=== PATIENT | female | born 1940 | race Caucasian/White ===

== ENCOUNTER 2018-12-20 12:01 | Inpatient (IN) ==
[2018-12-20] MEDS ORDERED: ZOFRAN IV PRN (13:55)
[2018-12-20] MEDS ORDERED: TYLENOL PO PRN (13:55)
[2018-12-20] MEDS ORDERED: SALINE LOCK IV FLUID XX ONE (13:55)
--- NOTE | 2018-12-20 14:23 | Diag Imaging Result Doc PS360 ---
CHEST-2 VIEWS - 12/20/2018 INDICATION: ms change COMPARISON: 06/09/2018 FINDINGS: Stable mild cardiomegaly. Pulmonary vascularity is normal. No infiltrates or edema. No pneumothorax or pleural effusion. IMPRESSION: Cardiomegaly. Electronically signed by Edd Evans 12/20/2018 2:21 PM
[2018-12-20 14:54] LABS: BASO# 0.02 X1000 (0.0-0.2); BASO% 0.3 % (0.0-0.8); EOS# 0.12 X1000 (0.0-0.7); EOS% 1.9 % (0.0-10.0); HEMATOCRIT 39.4 % (37.0-47.0); HEMOGLOBIN 12.6 g/dL (12.0-16.0); IMM GRAN# 0.03 X1000 (0.0-0.04); IMM GRAN% 0.5 % (0.0-0.5); LYMPH# 1.19 X1000 (1.2-3.4); LYMPH% 18.9 % (20.5-51.1); MCH 29.3 PG (27-31); MCV 91.6 FL (81-99); MONO# 0.59 X1000 (0.11-0.59); MONO% 9.4 % (1.7-9.3); MPV 11.8 FL (7.4-10.4); NEUT# 4.33 X1000 (1.4-6.5); PLT 240 X1000 (130-400); RDW 13.8 % (11.5-14.5); WBC 6.28 X1000 (4.8-10.8)
[2018-12-20 15:18] LABS: ALB/GLOB RATIO 1.1; ALBUMIN 3.7 g/dL (3.5-5.0); CALCIUM 9.5 mg/dL (8.8-10.2); CREATININE 1.1 mg/dL (0.5-0.9); POTASSIUM 3.9 mmol/L (3.5-5.1); TOTAL BILIRUBIN 0.66 mg/dL (0.20-1.00); TOTAL PROTEIN 7.1 g/dL (6.3-8.3)
[2018-12-20 15:25] LABS: FREE T4 1.64 ng/dL (0.93-1.70)
[2018-12-20 15:49] LABS: TSH 14.18 uIUmL (0.27-4.20)
--- NOTE | 2018-12-20 15:55 | Diag Imaging Result Doc PS360 ---
EXAM: CT HEAD W/O CONTRAST 12/20/2018 HISTORY: ms change TECHNIQUE: This exam was performed using automated exposure control, adjustment of mA or kV according to patient size, and/or use of iterative reconstruction technique. COMMENT: There are patchy areas of lucency in the periventricular white matter bilaterally. There is no evidence of mass effect, bleed, or abnormal extra-axial fluid collection. There are no previous studies available for comparison. There is opacification of the left maxillary sinus and sclerosis of the surrounding bone which may be due to chronic sinusitis. The possibility of a mucocele cannot be excluded. There is also mucosal thickening in the left sphenoid sinus. The calvarium is intact. IMPRESSION: Extensive chronic microvascular ischemic change. No definite evidence of acute disease. Electronically signed by Jose Torres 12/20/2018 3:52 PM
[2018-12-20 16:15] LABS: INR 2.61; PROTIME 29.8 Seconds (11.0-16.0)
[2018-12-20 16:31] LABS: ALLEN TEST YES; BE 2.8 mmoll (-3.0-3.0); BLOOD TYPE ARTERIAL; METHB 0.9 % (0.0-1.5); MODALITY ROOM AIR; O2(CT) 17.2 mL/dL (15.0-23.0); O2HB 94.8 % (95.0-99.0); PCO2(98.6) 44 mmHg (35-45); PO2(98.6) 76 mmHg (60-100); SAMPLE BLOOD; SAO2 97.7 % (95.0-100.0); THB 12.9 g/dL (11.5-17.4); pH(98.6) 7.41 (7.35-7.45)
[2018-12-20] MEDS: PEPCID PO SCH (20:40)
[2018-12-20] MEDS: COUMADIN PO SCH (20:40)
[2018-12-20] MEDS: KLOR-CON PO SCH (20:40)
[2018-12-20] MEDS: CELEXA PO SCH (20:40)
[2018-12-20] MEDS: TENORMIN PO SCH (20:40)
[2018-12-20] MEDS ORDERED: CIPRO PO SCH (21:00)
[2018-12-21] MEDS: SYNTHROID PO SCH (06:42)
[2018-12-21] MEDS: HYDROCHLOROTHIAZIDE PO SCH (09:23)
[2018-12-21] MEDS: AVAPRO PO SCH (09:23)
[2018-12-21] MEDS: ASPIRIN PO SCH (09:23)
[2018-12-21] MEDS: LANOXIN PO SCH (09:23)
[2018-12-21] MEDS: KLOR-CON PO SCH ×2 (09:24→20:58)
[2018-12-21] MEDS: CLARITIN PO SCH (09:24)
[2018-12-21] MEDS: PEPCID PO SCH ×2 (09:24→20:58)
[2018-12-21] MEDS: TENORMIN PO SCH ×2 (09:25→20:58)
[2018-12-21] MEDS: LEVAQUIN PO SCH (09:28)
[2018-12-21] MEDS: TIMOPTIC 0.25% OPH SOLUTION OPH SCH (09:29)
[2018-12-21 10:13] LABS: URINE SOURCE CLEAN CATCH
[2018-12-21 10:22] LABS: BILIRUBIN URINE NEGATIVE (NEGATIVE); BLOOD URINE NEGATIVE (NEGATIVE); COLOR YELLOW; GLUCOSE URINE NEGATIVE (NEGATIVE); KETONE URINE NEGATIVE (NEGATIVE); LEUKOCYTES URINE SMALL (NEGATIVE); NITRITE URINE NEGATIVE (NEGATIVE); PH URINE 6.5; PROTEIN URINE TRACE mg/dL (NEGATIVE); SP GRAVITY URINE 1.009; TURBIDITY URINE CLEAR (CLEAR); UR EPITHELIAL CELLS <10 /HPF (<10); URINE BACTERIA NEGATIVE /HPF; URINE RBC <10 /HPF (<10); URINE WBC <10 /HPF (<10); UROBILINOGEN URINE NORMAL (NORMAL)
--- NOTE | 2018-12-21 10:49 | HISTORY AND PHYSICAL ---
CHIEF COMPLAINT: Confusion. HISTORY OF PRESENT ILLNESS: The patient is a 78-year-old white female followed in my medical practice. She has come in over the last 2 to 3 weeks with her roommate. There have been details given by the roommate where the patient has been more confused over the past 2 to 3 weeks, but she has noticed a general decline in her mental status over the past 6 months by her report. She has been confused at times, rarely even having some visual hallucinations at home. The patient is being treated in my office for some ulcerations and cellulitis of her distal left toes; two of the toes have cleared up and the left fourth toe ulceration has been gradually healing in. She has received several rounds of antibiotics for this over the past couple months. She also has had atrial fibrillation onset in September 2018, and been started on anticoagulation per Dr. De Jesus in that regard. The patient was found initially as she came in with more pronounced confusion. The first time I had recognized it in the office was on 12/13/2018. At that time, we checked a workup for the delirium and found that she had a UTI that ended up growing out Citrobacter, and she was placed on ciprofloxacin for that, but her mentation has not really improved with the treatment of the UTI. Confusion has been prevalent. Nausea has been present for 2 to 3 weeks. The patient received iron infusion at Dr. Escobar's office on the morning of admission, 12/20/2018. MEDICATIONS: Other medications prior to admission have included the Cipro 250 mg p.o. b.i.d. started around 12/14/2018. Other medications at home are: Timoptic eye drops, aspirin 81 mg daily, Pepcid 20 mg b.i.d., Synthroid 112 mcg daily, atenolol 25 mg p.o. b.i.d., Claritin 10 mg p.o. daily, KCl 10 mEq p.o. b.i.d., Tylenol p.r.n., Coumadin 2 mg p.o. at bedtime. Efudex was being used on his lower extremities circumferentially due to significant LUIS's on the lower extremities; this has been prescribed by Dr. Walter, her lockstitch binder, but she has not been applying that over the past week or two. Avapro 300 mg p.o. daily, Celexa 20 mg p.o. at bedtime, digoxin 125 mcg p.o. daily, tramadol 50 mg p.o. q. 6 hours p.r.n. pain, PreserVision soft gel 1 tablet b.i.d., hydrochlorothiazide 25 mg p.o. q.a.m. ALLERGIES: RADHA inhibitor caused a cough. She has allergy to horse serum, tetanus, doxycycline and codeine. PAST MEDICAL HISTORY: 1. Chronic atrial fibrillation, diagnosed September 2018. 2. Obstructive sleep apnea. 3. History of trigeminy in the past. 4. Intolerance to statins. 5. Hypercholesterolemia. 6. Chronic iron-deficiency anemia. 7. Moderate CAD noted February 2009. 8. Irritable bowel syndrome. 9. Moderate right carotid stenosis diagnosed 2005. 10. Cataracts with history of surgery. 11. Hypothyroidism diagnosed 2000. 12. Osteoarthritis. 13. Glaucoma. 14. Hypertension diagnosed in 1980. 15. History of Graves disease in 1999, status post ablation. PAST SURGICAL HISTORY: 1. Tonsillectomy 1955. 2. Vaginal hysterectomy 1973. 3. Left knee arthroscopy 1989. 4. Triple arthrodesis left foot 2001. 5. Left cataract surgery December 2007. 6. Right total shoulder replacement 06/28/2012. 7. Lumbar laminectomy March 2012. 8. Right CEA October 2012. 9. Left shoulder total replacement 2012. IMMUNIZATIONS: Pneumovax 23 given 01/20/2005, 03/07/2017. Tetanus immunization given 03/07/2017. Zostavax given in the past. Prevnar 13 given July 2015. FAMILY HISTORY: Notable for mother with oat cell carcinoma of the lung. Father with [place] at age 65. Father with hypertension. Father with stroke at age 60. IDDM in maternal grandmother. SOCIAL HISTORY: Patient lives in [place]. She has been for about 30 years. Lives with a roommate. Has 3 children. 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 Quit smoking in 1988, but has a 25 pack-year history of smoking. Drinks rare wine. REVIEW OF SYSTEMS: Notably, the patient had some has had some depression as noted by screening PHQ-2 and PHQ-9, dating back to 2017 or so. The 6-CIT evaluation April 2018 was 4 of 28. PHYSICAL EXAM: VITAL SIGNS: Blood pressure 91/61, pulse 42. GENERAL: Moderately obese white female, confused. This has been noted by me over the past 2 weeks. Prior to that, I was not particularly aware of any major confusion, and just seeing her quite often for this foot abnormality. SKIN: Her LUIS is prominent over the lower extremities and mildly irritated with recent Efudex placement, and very mild swelling and weeping at the distal legs. Left fourth toe shows a small ulceration healing in and granulating in well without major signs of infection or redness streaking up the leg at all. HEENT: RISHABH. Cataract changes bilaterally. EOMI. TMs clear. OP no redness. NECK: No LA, TMG, JVD, or bruits. CV: Irregularly irregular. LUNGS: CTA cannot rule out rare wheeze. BACK: Nontender. ABDOMEN: Protuberant, soft, NT, ND. No mass. No HSM. BREASTS/PELVIC/RECTAL: Deferred. EXTREMITIES: 2+ lower extremity edema. NEUROLOGIC: Cranial nerves 2-12 are intact. She moves all extremities well. DTRs are equal. Mild to moderate confusion noted. ASSESSMENT: 1. Delirium, most pronounced over the past 2 to 3 weeks, but possibly some mental status warp changer the past 6 months. Rule out delirium on top of baseline dementia. 2. Left fourth toe ulceration, granulating in nicely over a period of 2 months or so now with treatment with antibiotics. 3. Citrobacter urinary tract infection on Cipro. 4. Chronic atrial fibrillation on anticoagulation of Coumadin per Dr. De Jesus. 5. Hypothyroidism. 6. Hypertension. 7. Hyperlipidemia. 8. Moderate coronary artery disease. 9. Intolerance to statins. 10. Chronic iron deficiency anemia. 11. Obstructive sleep apnea. 12. History of trigeminy remotely. 13. Irritable bowel syndrome. 14. History of carotid stenosis, status post right carotid endarterectomy. 15. Osteoarthritis, moderate to severe. 16. Remote history of Graves disease. 17. Glaucoma. PLAN: Will admit the patient. We will check repeat urinalysis. We will check labs to include CBC with differential, CMP, ammonia level, TFTs, ABG. Will check chest x-ray, CT of the head. Go ahead and continue antibiotic in the form of Cipro at this point and her home medications. Check PT as well. cc: Dexter Live MD
[2018-12-21] MEDS: HALDOL IV PRN ×3 (11:13→23:43)
--- NOTE | 2018-12-21 14:12 | PROGRESS NOTE ---
DATE: 12/21/2018 SUBJECTIVE: The patient had some confusion last evening. Apparently, he had wandered the potter some and did not sleep well. On questioning her daughter, I spoke with her daughter today about her mother's mental status change and she is feels like the best one to note any changes would be Ms. Ulrich's roommate. The roommate says that Ms. Ulrich has had confusion to some extent over the past 6 months with gradual increasing onset but especially bad over the past 2 to 3 weeks. OBJECTIVE: Afebrile. Pulse as low as 46, respirations 18, blood pressure 118/92, and O2 saturation room air 94 to 96 percent.CV: Irregularly irregular. Lungs: Clear. Extremities: Mild redness over the distal legs bilaterally with 1+ lower extremity edema, AK is minimally red. Neurologic: She moves all extremities well. No focal deficits. Confusion [id number]. LABORATORY DATA: 1. UA clean catch is negative where as it was growing out Citrobacter prior to starting Cipro on 12/14/2018 outpatient. CMP largely unremarkable. Creatinine 1.1. Ammonia less than 10. TSH is elevated at 14 whereas free T4 is 1.64 high normal. INR 2.61. ABG on room air with pH 7.41, pCO2 44, PO2 76, HC03 27, O2 saturation 97.7. White count 6.28, hemoglobin 12.6, MCV 91.6, and platelets 240,000. 2. CT of the head done yesterday reveals extensive chronic microvascular ischemic changes. Also, there is some opacification of the left maxillary sinus and sclerosis of the surrounding bone, which may be due to chronic sinusitis as read by Dr. Torres. 1. Chest x-ray was negative yesterday. ASSESSMENT: 1. Delirium. 2. Left 4th toe ulceration improving. 3. Citrobacter UTI consistent with resolution on negative UA here now. 4. Possible chronic left sinusitis. 5. Rule out dementia gradually increasing over the past 6 months with concomitant delirium. 6. Chronic atrial fibrillation on anticoagulation, now per Dr. De Jesus within the past 6 months. 7. Hypothyroidism. 8. Hypertension. 9. Hyperlipidemia. 10. Moderate CAD. 11. Intolerance to statins. 12. Chronic iron deficiency anemia, currently inactive. 13. MISSY. 14. History of trigeminy remote. 15. Irritable bowel syndrome. 16. History of carotid stenosis status post right carotid endarterectomy, remote. 17. Moderate to severe osteoarthritis. 18. Remote history of Graves disease. 19. Glaucoma. 20. AK's prominent over the lower extremities with recent Efudex treatment per Dr. Walter. PLAN: For now, we will telephone exchange operator to oral Levaquin in place of the Cipro. We will ask Dr. Duran to evaluate the patient. We will follow repeat labs in the morning to include BMP, CBC, digoxin, ProTime. We will check dementia labs to include B12, folate, and RPR. cc: Dexter Live MD
--- NOTE | 2018-12-21 16:19 | CONSULTATION ---
DATE OF CONSULTATION: 12/21/2018 HISTORY: Ms. Ulrich is 78 years old, and there has been evidence of cognitive impairment. Attentive architect manager at the bedside has been aware of forgetfulness for the last several months, gradually more prominent. History from the patient is that she is aware of some forgetfulness, but does not realize there have been any serious problems. Frit Burner reports patient had made some mistakes with medications and there was concern for possible problems with bill paying, and so architect manager has taken over those duties. She stopped driving due to vision problems and there was not history of getting lost. She has sometimes seemed lost in her own home. She has had predominantly visual hallucinations, seeing both acquaintances and strangers. There was never clear history of an auditory component with these hallucinations. There has not been significant delusion in times past, but that may have occurred recently. There is no history of serious head injury, diagnosed stroke, seizure, or other neurologic event. She does not use ethanol. FAMILY HISTORY: Negative for dementia. She has been afebrile here. Noncontrast CT shows chronic white matter changes with nothing focal or acute, and no bleeding. Labs showed sodium 133, ProTime 29.8, and INR 2.6 consistent with her taking anticoagulant medicine. She has atrial fibrillation, history of recent UTI, and treatment for cellulitis in the toes. PHYSICAL EXAMINATION: On exam, Ms. Ulrich is awake, alert, and attentive and appropriate. She recognized me. Her speech is not dysarthric. Language function is intact on bedside testing. Remote memory is good. Recent memory is fair. She scored 20 of 30 on bedside cognitive testing. She registered 3 items, and then recalled 2 of 3 items correctly at 10 minutes with 1 intrusion. She had trouble interpreting a metaphor, but eventually did that satisfactorily. She was not able to name the President or discuss recent news. She made some careless mistakes spelling "world" backward. She was not certain of the day of the month, and otherwise was oriented to all parameters. Head and neck are unremarkable. Visual quiroz are full tested grossly by confrontational finger counting. Extraocular movements are full. Facial motility is little bit diminished bilaterally, but symmetric. Tongue is midline. She can hear. Shoulder shrug is diminished on the left in a typical mechanical joint problem pattern. Strength is normal in the arms and legs, except where limited by discomfort and joint problems. She did well on [id number] testing bilaterally. Sensation is intact on very gross testing over the limbs. She stood and demonstrated very antalgic gait, but not significant apraxia. IMPRESSION: 1. Cognitive impairment, probably dementia/major neurocognitive disorder. She has some risk factors for cerebrovascular ischemic problems, but history does not sound like primarily vascular dementia. I think it would be reasonable to consider cholinesterase inhibitor trial. We discussed the available options. Since any benefit with this management would likely not be seen quickly, I do not think we have to do anything urgently. We discussed potential cholinergic GI side effects, and she and her architect manager understand to stop cholinesterase inhibitor if that occurs. Simplest option would likely be to start donepezil 5 mg daily. I will be glad to see her for follow-up as an outpatient, if needed. 2. Her visual hallucinations seem typical for age and poor vision, probably with significant contribution from dim lighting. Features are not typical of psychosis. I told her she might manage these with shining flashlight, increasing ambient light, or she might simply ignore these purely visual hallucinations. If hallucinations become more prominent, or if there are associated delusions and/or auditory component, we might consider cautious trial with low-dose antipsychotic medication. Thanks for asking Neurology to see Ms. Ulrich. cc: MD Dexter Varner III, MD MTDD
[2018-12-21] MEDS: COUMADIN PO SCH (20:58)
[2018-12-21] MEDS: CELEXA PO SCH (20:58)
[2018-12-21] MEDS ORDERED: SEROQUEL PO SCH (21:00)
[2018-12-22] MEDS: SYNTHROID PO SCH (06:00)
[2018-12-22 06:58] LABS: BASO# 0.02 X1000 (0.0-0.2); BASO% 0.3 % (0.0-0.8); EOS# 0.03 X1000 (0.0-0.7); EOS% 0.4 % (0.0-10.0); HEMATOCRIT 35.9 % (37.0-47.0); HEMOGLOBIN 11.5 g/dL (12.0-16.0); IMM GRAN# 0.03 X1000 (0.0-0.04); IMM GRAN% 0.4 % (0.0-0.5); LYMPH# 0.71 X1000 (1.2-3.4); MCH 28.9 PG (27-31); MCV 90.2 FL (81-99); MONO# 0.88 X1000 (0.11-0.59); MONO% 11.1 % (1.7-9.3); MPV 11.6 FL (7.4-10.4); NEUT# 6.25 X1000 (1.4-6.5); NEUT% 78.8 % (42.2-75.2); PLT 254 X1000 (130-400); RBC 3.98 XMIL (4.2-5.4); RDW 13.5 % (11.5-14.5); WBC 7.92 X1000 (4.8-10.8)
[2018-12-22 07:01] LABS: INR 2.62; PROTIME 29.9 Seconds (11.0-16.0)
[2018-12-22 07:22] LABS: CALCIUM 9.1 mg/dL (8.8-10.2); CREATININE 1.2 mg/dL (0.5-0.9)
--- NOTE | 2018-12-22 09:47 | PROGRESS NOTE ---
DATE: 12/22/2018 Ms. Ulrich is awake, alert, attentive, appropriate, cheerful and conversant. There is nothing new on brief bedside testing. We reviewed discussion of cholinesterase inhibitor options. She and cyber systems engineer report tendency to diarrhea already present, and we discussed possibility that this will be problematic with cholinesterase inhibitor. Still, I think it would be reasonable to try donepezil or rivastigmine patch. I will be glad to follow her, if needed. No other suggestions. Thanks for asking Neurology to see Ms. Ulrich. cc: MD Dexter Varner III, MD [facility] CENTERNevaeh
[2018-12-22] MEDS: CLARITIN PO SCH (10:24)
[2018-12-22] MEDS: HYDROCHLOROTHIAZIDE PO SCH (10:24)
[2018-12-22] MEDS: AVAPRO PO SCH (10:24)
[2018-12-22] MEDS: LEVAQUIN PO SCH (10:24)
[2018-12-22] MEDS: PEPCID PO SCH (10:24)
[2018-12-22] MEDS: ASPIRIN PO SCH (10:24)
[2018-12-22] MEDS: TENORMIN PO SCH (10:24)
[2018-12-22] MEDS: LANOXIN PO SCH (10:25)
[2018-12-22] MEDS: KLOR-CON PO SCH (10:26)
[2018-12-22] MEDS: TIMOPTIC 0.25% OPH SOLUTION OPH SCH (10:26)
[2018-12-22 11:32] VITALS: BP 108/67
--- NOTE | 2018-12-25 04:16 | PROGRESS NOTE ---
DATE: 12/22/2018 SUBJECTIVE: Patient did not sleep well overnight despite Seroquel 50 mg. She may have had slight diarrhea. OBJECTIVE: Afebrile. Vital signs stable. Pulse 64. CV: Irregularly irregular. Lungs: Clear. Extremities: No major edema. Left 4th toe healing nicely. LABORATORY: Urine culture and blood cultures remain negative. White count 7.9, hemoglobin 11.5, and platelets 254, Sodium 133, potassium 4.0, chloride 96, CO2 25, BUN 21, creatinine 1.2, calcium 9.1 vitamin B12 1236, folate 10.7. The digoxin level 2.0. RPR negative. ASSESSMENT AND PLAN: Dr. Duran's evaluation appreciated and reviewed, and appears more to be along the lines of a dementia advancing. 1. Dementia, increasing. 2. Left 4th toe ulceration, improving. 3. Citrobacter UTI, essentially resolved on antibiotics of Cipro prior to admission. 4. Possible chronic left sinusitis, stable on Levaquin. 5. Chronic atrial fibrillation on anticoagulation per Dr. De Jesus with therapeutic INR's on her current Coumadin regimen. 6. Hypothyroidism. 7. Hypertension. 8. Hyperlipidemia. 9. Moderate CAD. 10. Intolerance to statins. 11. Chronic iron deficiency anemia, inactive. 12. MISSY. 13. History of trigeminy remote. 14. Irritable bowel syndrome. 15. History of carotid stenosis status post right carotid endarterectomy, remote. 16. Moderate to severe osteoarthritis. 17. Remote history of Graves disease. 18. Glaucoma. 19. AK's lower extremities under care of Dr. Walter. Currently, off Efudex. PLAN: We will discharge patient home on Levaquin for 9 days orally at 500 mg daily to treat his sinusitis, which is chronic. [*]digoxin to 0.125 mg every other day instead of daily as her level is 2.0 at the upper limits of normal, and that could contribute to possible diarrhea so we will back down a notch. Continue Coumadin that she has been on at 2 mg nightly following with Dr. De Jesus. cc: Dexter Live MD
== END 2018-12-22 15:18 | disposition home or self-care (01) | DRG 884 ==
LOC: DIRADM 12:01 → 3N 12:19
PROVIDERS: ADMIT Family Medicine; ATTEND Family Medicine
CPT/HCPCS: 70450; 71020; 71046; 80048; 80053; 80162; 81001; 82140; 82607; 82746; 82805; 84439; 84443; 85025; 85610; 86592; 87040; 87088; A9270; J1630

== ENCOUNTER 2018-12-23 13:02 | Inpatient (IN) ==
[2018-12-23] MEDS ORDERED: CALMOSEPTINE OINTMENT TOP PRN (16:26)
--- NOTE | 2018-12-23 18:36 | HISTORY AND PHYSICAL ---
CHIEF COMPLAINT: Declining of activities of daily living as well as instrumental activities. 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 Live. I was called by one of the daughter's several times this morning, last night, that the patient needs some help. She is not getting out of the bed in the house, pretty much bedridden. I called the nursing staff to arrange outpatient home health care over the weekend and reassess on Tuesday. Obviously, family was not happy with the decision and they brought her back directly to the hospital for deconditioning needs, long-term care placement. I spoke to the discharge nurse and will evaluate long-term placement on Tuesday. Upon examining the patient, she is pleasantly confused. She is extremely weak, not able to walk. She denies any other complaints. Most of the history was obtained from the prior records. PAST MEDICAL HISTORY: Chronic atrial fibrillation in September 2018. Sleep apnea, metabolic syndrome. Hyperlipidemia. Intolerance to statin drugs, chronic iron deficiency anemia. Moderate CAD, IBS, moderate right carotid stenosis, hypothyroidism, osteoarthritis, glaucoma, hypertension, history of Graves disease in 1999, status post radioactive ablation. Multiple actinic keratosis lesions on the skin. Stage I pressure ulcer in the sacral area. Glaucoma. PAST SURGICAL HISTORY: Tonsillectomy, vaginal hysterectomy, left knee arthroscopy, triple arthrodesis left foot, left cataract surgery, right total shoulder replacement, lumbar laminectomy in March 2012, right carotid endarterectomy, left shoulder total replacement. ALLERGIES: Reported to RADHA inhibitors. Equine serum, tetanus, doxycycline and codeine. MEDICATIONS: Timoptic 1 drop in the morning. Aspirin 81 mg daily. Pepcid 20 p.o. b.i.d., Synthroid 112 mcg daily, atenolol 25 p.o. b.i.d., potassium 10 mEq p.o. b.i.d., warfarin 2 mg at bedtime. Avapro 300 daily, Celexa 20 daily, hydrochlorothiazide 25 daily, Seroquel 75 daily. Aricept 5 mg daily, Claritin 10 mg daily, Levaquin 500 daily, digoxin 125 daily. 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 She has 2 daughters. One daughter is the power of assistant attorney general. She has also Living Will, DNR as per the family. Quit smoking in 1988. Socially drinks alcohol. FAMILY HISTORY: Mother with oat cell carcinoma of the lung. Father of [place] at 65. IMMUNIZATIONS: Pneumococcal 23 was given 01/20/2015. Tetanus 03/07/2017. Shingles vaccine in the past, Prevnar 13 in 2016. REVIEW OF SYSTEMS: General: Pleasantly confused, not offering any complaints. No headache. Cardiopulmonary: No chest pain, shortness of breath. GI: No nausea, vomiting. : She has a diaper. Extremities: Chronic deformities in the feet. Neurologic: No neurological symptoms or weakness. PHYSICAL EXAMINATION: VITAL SIGNS: Temperature is 97, pulse is kind of low 46, blood pressure is 130/97. GENERAL: Slightly heavyset. HEENT: Atraumatic, normocephalic. Pupils equal, reactive to light. NECK: Supple. CHEST: Bilateral air entry, distant heart sounds. BREAST EXAM: Deferred. ABDOMEN: Belly is soft, obese, nontender. : In diapers. EXTREMITIES: Multiple deformities in feet. SKIN EXAMINATION: On the sacral area, redness also noted. Multiple actinic keratoses noted. LABS: CBC is 7.9, hematocrit 35, platelets 254. PT/INR 2.6 on 12/22/2018. ABG: pH is 7.41, pCO2 of 44, pO2 of 76. SMA-7: Sodium 133, potassium 4, BUN 21, creatinine 1.2, glucose 117. TSH 14, free T4 of 1.6. B12 is normal. Digoxin level is 2.0. Urine culture 12/21/2018 is negative and blood cultures are negative. ASSESSMENT AND PLAN: 1. A 78-year-old, white female, basically admitted to the hospital with deconditioning with underlying dementia, osteoarthritis and maybe delirium from urinary tract infection, readmitted for long-term plan. Plan is physical therapy, social worker clinical consult. 2. Living Will, Do Not Resuscitate, as per the family. 3. Atrial fibrillation on Coumadin 2 mg. Digoxin 125. Heart rate is low. We will repeat the digoxin level. 4. Recent urinary tract infection on Levaquin. 5. Weakness. We will check the vitamin D levels and reconcile home medications. 6. Dr. Live will follow up on Tuesday for the disposition. cc: Sal Gutierrez MD
--- NOTE | 2018-12-23 20:44 | Diag Imaging Result Doc PS360 ---
EXAM: CHEST-2 VIEWS HISTORY: SOB TECHNIQUE: Chest two views COMPARISON: 12/20/2018 FINDINGS: The lungs are well expanded. The heart is enlarged. The vessels are not distended. There are no infiltrates. No pleural effusions. IMPRESSION: Marked cardiomegaly, but no pulmonary edema. Electronically signed by Parker Gtz 12/23/2018 8:41 PM
[2018-12-23] MEDS ORDERED: TENORMIN PO SCH (21:00)
[2018-12-23] MEDS: CELEXA PO SCH (21:27)
[2018-12-23] MEDS: SEROQUEL PO SCH (21:27)
[2018-12-23] MEDS: KLOR-CON PO SCH (21:27)
[2018-12-23] MEDS: COUMADIN PO SCH (21:27)
[2018-12-23] MEDS: PEPCID PO SCH (21:27)
[2018-12-24] MEDS: ARICEPT PO SCH (09:59)
[2018-12-24] MEDS: LEVAQUIN PO SCH (09:59)
[2018-12-24] MEDS: ASPIRIN PO SCH (09:59)
[2018-12-24] MEDS: TIMOPTIC 0.25% OPH SOLUTION OPH SCH (09:59)
[2018-12-24] MEDS: SYNTHROID PO SCH (09:59)
[2018-12-24] MEDS: CLARITIN PO SCH (10:00)
[2018-12-24] MEDS: HYDROCHLOROTHIAZIDE PO SCH (10:00)
[2018-12-24] MEDS: PEPCID PO SCH ×2 (10:00→20:57)
[2018-12-24] MEDS: KLOR-CON PO SCH ×2 (10:00→20:57)
[2018-12-24] MEDS: AVAPRO PO SCH (10:04)
[2018-12-24] MEDS: TYLENOL PO PRN (10:04)
[2018-12-24] MEDS ORDERED: VITAMIN D PO ONE (16:36)
--- NOTE | 2018-12-24 17:18 | PROGRESS NOTE ---
DATE: 12/24/2018 SUBJECTIVE: The patient is a lot better. Family is at bedside. She has some diarrhea. On caretaker grounds heart rate is dropping, around 40 to 50s. She is in atrial fibrillation. REVIEW OF SYSTEMS: Basically intermittent confusion, declining of activities of daily living. OBJECTIVE: Temperature is 98 degrees, pulse is 60 now, blood pressure is 150/57. Chest: There is bilateral air entry. Heart sounds are distant, erratic. Belly is soft, nontender. No neurological deficits. DIAGNOSTIC STUDIES: Digoxin level 2.4. Vitamin D 17.6. ASSESSMENT AND PLAN: 1. Deconditioning with unable to perform activities of daily living due to combination of osteoarthritis and vitamin D deficiency. 2. 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 3. Diarrhea. 4. Stage 1 pressure ulcer. PLAN OF CARE: As follows. 1. Hold the digoxin and metoprolol. Repeat the digoxin levels. Continue to monitor in telemetry. 2. Vitamin D deficiency on replacement. 3. Diarrhea and ordered the stool samples for rule out Clostridium difficile. 4. Continue physical therapy. DISPOSITION: Radiology Equipment Servicer consult for rehabilitation placement, and Dr. Live is going to follow up. LEVEL OF DOCUMENTATION: 25 minutes. cc: Sal Gutierrez MD
[2018-12-24] MEDS: SEROQUEL PO SCH (20:56)
[2018-12-24] MEDS: COUMADIN PO SCH (20:56)
[2018-12-24] MEDS: CELEXA PO SCH (20:56)
--- NOTE | 2018-12-25 08:22 | EKG Report ---
Test Performed on : 12/23/2018 5:12:46 PM Test Reason : chest pain Blood Pressure : / mmHG Vent. Rate : 067 BPM Atrial Rate : 084 BPM P-R Int : 000 ms QRS Dur : 088 ms QT Int : 346 ms P-R-T Axes : 000 036 -84 degrees QTc Int : 365 ms Atrial fibrillation. Low voltage QRS Cannot rule out Anterior infarct , age undetermined ST & T wave abnormality, consider inferolateral ischemia Abnormal ECG When compared with ECG of 06-AUG-2013 12:49, Atrial fibrillation. has replaced Sinus rhythm. ST now depressed in Lateral leads T wave inversion now evident in Inferior leads T wave inversion now evident in Anterolateral leads Confirmed by Miranda KRISHNA, Matt Serna ([id number]) on 12/26/2018 7:27:36 PM
[2018-12-25] MEDS ORDERED: LANOXIN PO SCH (09:00)
[2018-12-25] MEDS: HYDROCHLOROTHIAZIDE PO SCH (09:40)
[2018-12-25] MEDS: TYLENOL PO PRN ×2 (09:40→21:56)
[2018-12-25] MEDS: SYNTHROID PO SCH (09:40)
[2018-12-25] MEDS: KLOR-CON PO SCH ×2 (09:40→20:34)
[2018-12-25] MEDS: LEVAQUIN PO SCH (09:40)
[2018-12-25] MEDS: VITAMIN D PO SCH (09:40)
[2018-12-25] MEDS: PEPCID PO SCH ×2 (09:40→20:34)
[2018-12-25] MEDS: AVAPRO PO SCH (09:40)
[2018-12-25] MEDS: TIMOPTIC 0.25% OPH SOLUTION OPH SCH (09:41)
[2018-12-25] MEDS: CLARITIN PO SCH (09:41)
[2018-12-25] MEDS: ASPIRIN PO SCH (09:41)
[2018-12-25] MEDS: ARICEPT PO SCH (09:41)
[2018-12-25] MEDS: CELEXA PO SCH (20:34)
[2018-12-25] MEDS: COUMADIN PO SCH (20:34)
[2018-12-25] MEDS: SEROQUEL PO SCH (20:34)
[2018-12-26 08:20] VITALS: BP 134/71
[2018-12-26] MEDS: VITAMIN D PO SCH (08:56)
[2018-12-26] MEDS: KLOR-CON PO SCH (08:57)
[2018-12-26] MEDS: CLARITIN PO SCH (08:57)
[2018-12-26] MEDS: HYDROCHLOROTHIAZIDE PO SCH (08:57)
[2018-12-26] MEDS: SYNTHROID PO SCH (08:57)
[2018-12-26] MEDS: AVAPRO PO SCH (08:57)
[2018-12-26] MEDS: LEVAQUIN PO SCH (08:57)
[2018-12-26] MEDS: PEPCID PO SCH (08:57)
[2018-12-26] MEDS: ARICEPT PO SCH (08:57)
[2018-12-26] MEDS: TIMOPTIC 0.25% OPH SOLUTION OPH SCH (08:57)
[2018-12-26] MEDS ORDERED: TENORMIN PO SCH (09:00)
--- NOTE | 2018-12-26 09:03 | CONSULTATION ---
DATE OF CONSULTATION: 12/25/2018 HISTORY OF PRESENT ILLNESS: I saw Ms. Ulrich last week. She has cognitive impairment with likely baseline dementia/major neurocognitive disorder. She had some gait apraxia with antalgic features. Donepezil was started prior to discharge a few days ago. According to daughter, after she was discharged and at home, she seemed suddenly less able to ambulate. There was not clear focal neurologic feature. She had a sense of weakness in both legs, and family agreed there was difficulty with gait, seeming to affect both legs equally. There was not altered consciousness, altered awareness, collapse. PHYSICAL EXAMINATION: She is awake, alert, attentive. She seems appropriate, relatively cheerful. Speech is not dysarthric. She paused before answering several questions but was able to answer correctly regarding naming the hospital. She did not name the president. I did not test her cognitive function further (she scored 20/30 on bedside cognitive testing several days ago). She has good power in the legs. She has significant degenerative joint problems in both legs. She has significant apraxia with transfers and standing. Gait is apractic in addition to the antalgic features. IMPRESSION: Dementia/major neurocognitive disorder with typically associated gait apraxia. We discussed cognitive impairment and apraxia at length with daughter at the bedside. I do not have any new suggestion. I do not think adding donepezil has caused any significant difficulty, and I would continue donepezil trial if tolerated. We reviewed discussion of potential cholinergic GI side effects with donepezil, and if she has diarrhea, we may need to change plans. I hope she will get some benefit with physical therapy, and I agree with plans for rehab as daughter had outlined. I do not have any other suggestion from neurologic standpoint. Thanks for asking me to see Ms. Ulrich again. cc: MD Sal Varner III, MD MTDD
--- NOTE | 2018-12-26 10:40 | DISCHARGE SUMMARY ---
ADMISSION DATE: 12/23/2018 DISCHARGE DATE: 12/26/2018 DIAGNOSES: 1. Mild digoxin toxicity, resolved with stoppage of medication. 2. Diarrhea secondary to number 1. 3. Leg weakness, thought related to deconditioning. 4. Alzheimer's dementia, moderate. 5. Chronic atrial fibrillation on chronic Coumadin therapy. 6. Chronic insomnia improved with Seroquel. 7. Severe osteoarthritis, diffuse. 8. Left fourth toe ulceration, improving over the last couple of months gradually. 9. Chronic left sinusitis, stable on Levaquin. 10.Hypothyroidism. 11.Hypertension. 12.Hyperlipidemia. 13.Moderate coronary artery disease. 14.Intolerance to statins. 15.Chronic iron deficiency anemia, inactive. 16.Obstructive sleep apnea. 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 18.Irritable bowel syndrome. 19.History of carotid stenosis, status post right carotid endarterectomy, remote. 20.Remote history of Graves disease. 21.Glaucoma. 22.Above knee amputation of lower extremities, followed by Dr. Walter. CONSULTATIONS: Dr. Tyler Duran of Neurology. REASON FOR ADMISSION AND HOSPITAL COURSE: The patient is a 78-year-old white female followed at my medical practice. According to her roommate, she has been in general decline over the past 6 months where her memory has faded and over the past 2 to 3 weeks had abrupt worsening. She was noted to have a UTI which grew out Citrobacter sensitive to Levaquin, and that was treated outpatient, but she failed to improve. She continued to have prominent confusion, and she was moved to the hospital a week and a half ago. Dr. Duran evaluated the patient and thought she had dementia and placed her on Aricept at 5 mg daily. She did well on that admission and was able to be discharged home, but when she got home, she began to have some diarrhea, and despite reduction in her digoxin to 0.125 mg p.o. every other day, she had the diarrhea and came back in. Her digoxin level had risen from 2.0 to 2.4, so we stopped the digoxin, and her digoxin level came down to 1.7 quickly, and the diarrhea essentially resolved. She remains on chronic Coumadin therapy with therapeutic PT/INR, as she is on this for chronic atrial fibrillation and followed by Dr. De Jesus. She has had an ulceration on her left fourth toe that has been granulating in nicely over the past 2 months, and it is resolving without signs of infection. CT of head done on last admission did show some possible chronic left sinusitis, and we have continued treatment with Levaquin for that. She was given some Seroquel for chronic insomnia which has seemed to help, and she requires some Tylenol and Ultram as needed for arthritic pain. She did well during the hospitalization, and Physical Therapy worked with her about her leg weakness, and this was reevaluated by Dr. Duran during this hospitalization and thought to be related to deconditioning with a combination of arthritis. Physical Therapy [facility]. She will need evaluation of her wound of left fourth toe [facility] the [facility] and dressing and washing of this daily. She will also need followup on her PT and INR in 3 days, and a CBC and CMP will be obtained at that time, and her PT will be followed thereafter at one time weekly over the next 3 weeks while she is in rehab. She will follow up in my office after rehab is completed. cc: MD Sal Lin MD
--- NOTE | 2018-12-26 10:42 | DISCHARGE SUMMARY ---
ADMISSION DATE: 12/23/2018 DISCHARGE DATE: 12/26/2018 ADDENDUM REPORT Under assessment, needs additional diagnoses of mild depression, vitamin D deficiency at 17. Under plan, we will start 50,000 international units 1 time per week vitamin D2 and monitor vitamin D levels and continue Celexa longstanding for her depression. cc: MD Sal Lin MD
--- NOTE | 2018-12-27 16:45 | PROGRESS NOTE ---
DATE: 12/25/2018 SUBJECTIVE: Patient has had difficulty with her legs. Both legs have felt very weak and not able to hold the patient up, by her report. She has had resolution of the diarrhea after 1 dose of Lomotil and she is off the digoxin currently as her digoxin level was elevated on admission at 2.4, down to 1.7 now as of yesterday. Vitamin D level is low at 17.6. OBJECTIVE: Afebrile, pulse 81, respirations 16, blood pressure 143/57, O2 saturation on room air of 96%. CV: Irregularly irregular. Lungs: Clear. Abdomen: Soft, nontender, nondistended. Extremities: No major edema. There are prominent arthritic changes to the feet, ankles, and knees, and diffusely at the hands as well. She does have DTRs that are equal at her knee jerks at 2+/4. Neurologic: Cranial nerves are intact. She is able to move her legs but they do appear weak subjectively. Again, vitamin D level 17.6. Digoxin 1.7. ASSESSMENT: 1. Bilateral lower extremity weakness. 2. Vitamin D deficiency. 3. Osteoarthritis, diffuse, severe. 4. Chronic atrial fibrillation, on chronic anticoagulation. 5. Diarrhea, thought related to digoxin toxicity, now resolved. PLAN: Continue to leave off the digoxin. Continue atenolol at low dose. Supplement vitamin D. Stool studies are negative for C. difficile. Continue physical therapy. I would ask Dr. Duran to come back by and reassess patient today as he had seen her in the recent hospitalization prior to her discharge Tuesday and he came back. Family is extremely happy with his evaluation and care. We will continue to follow along with physical therapy and plans have been made for patient to go to rehab tomorrow as that is the family request. cc: MD Sal Lin MD
== END 2018-12-26 13:45 | DRG 395 ==
LOC: DIRADM 13:02 → 3N 13:55
PROVIDERS: ADMIT Internal Medicine; ATTEND Family Medicine
CPT/HCPCS: 71020; 71046; 80162; 82306; 87045; 87046; 87205; 89055; 93005; 93010; 94761; 94799; 97110; 97163; 97530; A9270

== ENCOUNTER 2019-04-09 03:56 | Inpatient (IN) ==
--- NOTE | 2019-04-04 09:38 | EKG Report ---
Test Performed on : 04/04/2019 09:27:29 AM Test Reason : PAT Blood Pressure : / mmHG Vent. Rate : 135 BPM Atrial Rate : 138 BPM P-R Int : 000 ms QRS Dur : 084 ms QT Int : 224 ms P-R-T Axes : 000 059 215 degrees QTc Int : 336 ms Atrial fibrillation. Low voltage QRS Septal infarct (cited on or before 23-DEC-2018) Abnormal ECG When compared with ECG of 15-MAR-2019 16:20, (Unconfirmed) Questionable change in QRS duration Borderline criteria for Inferior infarct are no longer present Questionable change in initial forces of Anteroseptal leads Confirmed by Michelle KRISHNA, Yfn Self ([id number]) on 04/05/2019 8:22:23 PM
[2019-04-04 10:09] LABS: URINE SOURCE CLEAN CATCH
[2019-04-04 10:38] LABS: BILIRUBIN URINE NEGATIVE (NEGATIVE); BLOOD URINE NEGATIVE (NEGATIVE); COLOR YELLOW; GLUCOSE URINE NEGATIVE (NEGATIVE); KETONE URINE NEGATIVE (NEGATIVE); LEUKOCYTES URINE NEGATIVE (NEGATIVE); NITRITE URINE NEGATIVE (NEGATIVE); PH URINE 6.5; PROTEIN URINE TRACE mg/dL (NEGATIVE); SP GRAVITY URINE 1.015; TURBIDITY URINE CLEAR (CLEAR); UROBILINOGEN URINE NORMAL (NORMAL)
[2019-04-04 10:39] LABS: BASO# 0.03 X1000 (0.0-0.2); BASO% 0.4 % (0.0-0.8); EOS# 0.15 X1000 (0.0-0.7); EOS% 2.1 % (0.0-10.0); HEMATOCRIT 29.7 % (37.0-47.0); LYMPH# 1.19 X1000 (1.2-3.4); LYMPH% 16.6 % (20.5-51.1); MCH 29.1 PG (27-31); MCHC 30.3 g/dL (33-37); MCV 96.1 FL (81-99); MONO# 0.58 X1000 (0.11-0.59); MONO% 8.1 % (1.7-9.3); MPV 11.3 FL (7.4-10.4); NEUT% 72.8 % (42.2-75.2); PLT 303 X1000 (130-400); RBC 3.09 XMIL (4.2-5.4); RDW 15.1 % (11.5-14.5); WBC 7.15 X1000 (4.8-10.8)
[2019-04-04 10:41] LABS: UR EPITHELIAL CELLS <10 /HPF (<10); URINE BACTERIA NEGATIVE /HPF; URINE RBC <10 /HPF (<10); URINE WBC <10 /HPF (<10)
[2019-04-04 10:44] LABS: HEMOGLOBIN A1C 4.5 % (4.8-6.0); INR 1.56
[2019-04-04 10:45] LABS: PTT 33.5 Seconds (22.3-41.8)
[2019-04-04 11:08] LABS: CALCIUM 9.6 mg/dL (8.8-10.2); CREATININE 1.4 mg/dL (0.5-0.9); POTASSIUM 4.1 mmol/L (3.5-5.1)
[2019-04-09] MEDS ORDERED: PEPCID ONE (05:48)
[2019-04-09] MEDS ORDERED: LYRICA ONE (05:48)
[2019-04-09] MEDS ORDERED: REGLAN ONE (05:48)
[2019-04-09] MEDS ORDERED: COLACE ONE (05:48)
[2019-04-09] MEDS ORDERED: KEFZOL 1 GM/D5W 2 GM/100 ML IVPB ONE (05:49)
[2019-04-09] MEDS ORDERED: LR 1,000 ML ONE (05:49)
[2019-04-09] MEDS ORDERED: NORCURON ONE (06:27)
[2019-04-09] MEDS ORDERED: SODIUM CHLORIDE 0.9% 10 ML ONE (06:27)
[2019-04-09] MEDS ORDERED: ROBINUL ONE (06:27)
[2019-04-09] MEDS ORDERED: XYLOCAINE-MPF 2% ONE (06:27)
[2019-04-09] MEDS ORDERED: EPHEDRINE ONE (06:27)
[2019-04-09] MEDS ORDERED: DIPRIVAN 1% ONE (06:27)
[2019-04-09] MEDS ORDERED: QUELICIN (DOSE) ONE (06:27)
[2019-04-09] MEDS ORDERED: EXPAREL 1.3% ONE (06:41)
[2019-04-09] MEDS ORDERED: SODIUM CHLORIDE 0.9% ONE (06:41)
[2019-04-09] MEDS ORDERED: DURAMORPH ONE (06:41)
[2019-04-09] MEDS ORDERED: TORADOL ONE (06:41)
[2019-04-09] MEDS ORDERED: MARCAINE 0.25% PF ONE (06:41)
[2019-04-09] MEDS ORDERED: CYKLOKAPRON 1,000 MG/NS 1,000 MG/100 ML IVPB ONE (06:49)
[2019-04-09] MEDS ORDERED: VANCOMYCIN ONE (07:43)
[2019-04-09] MEDS ORDERED: ZOFRAN ONE (07:49)
[2019-04-09] MEDS ORDERED: OFIRMEV 1000 MG/ISOTONIC SOLN 1,000 MG/100 ML BOTTLE ONE (07:49)
[2019-04-09] MEDS ORDERED: DECADRON ONE (07:49)
[2019-04-09] MEDS ORDERED: NEO-SYNEPHRINE ONE (07:51)
[2019-04-09] MEDS ORDERED: SODIUM CHLORIDE 0.9% 20 ML ONE (07:51)
[2019-04-09 08:03] LABS: URINE SOURCE CATH
[2019-04-09 08:05] LABS: BILIRUBIN URINE NEGATIVE (NEGATIVE); BLOOD URINE TRACE (NEGATIVE); COLOR YELLOW; GLUCOSE URINE NEGATIVE (NEGATIVE); KETONE URINE NEGATIVE (NEGATIVE); LEUKOCYTES URINE NEGATIVE (NEGATIVE); NITRITE URINE NEGATIVE (NEGATIVE); PH URINE 6.5; PROTEIN URINE TRACE mg/dL (NEGATIVE); SP GRAVITY URINE 1.015; TURBIDITY URINE CLEAR (CLEAR); UROBILINOGEN URINE NORMAL (NORMAL)
[2019-04-09 08:06] LABS: UR EPITHELIAL CELLS <10 /HPF (<10); URINE BACTERIA NEGATIVE /HPF; URINE RBC <10 /HPF (<10); URINE WBC <10 /HPF (<10)
[2019-04-09] MEDS ORDERED: FENTANYL ONE (08:36)
[2019-04-09] MEDS ORDERED: NS 1,000 ML ONE (10:29)
--- NOTE | 2019-04-09 10:43 | Diag Imaging Result Doc PS360 ---
EXAM: SHOULDER-LEFT HISTORY: l shoulder revision TECHNIQUE: Left shoulder single view COMPARISON: 03/15/2019 FINDINGS: There has been interval orthopedic replacement of the left shoulder. There is good positioning in the humeral shaft and glenoid. No fracture. Electronically signed by Parker Gtz 04/09/2019 10:40 AM
[2019-04-09] MEDS ORDERED: OXY IR ONE (11:05)
[2019-04-09] MEDS: DILAUDID ONE ×3 (11:05→11:25)
--- NOTE | 2019-04-09 11:47 | Diag Imaging Result Doc PS360 ---
EXAM: SHOULDER 1 VIEW LEFT HISTORY: post op total shoulder TECHNIQUE: Left shoulder single view COMPARISON: 10:34 AM FINDINGS: No interval change with good positioning of the shoulder prosthesis. Possible humeral head fragment slightly displaced laterally. Electronically signed by Parker Gtz 04/09/2019 11:45 AM
[2019-04-09] MEDS ORDERED: TYLENOL PO SCH (12:15)
[2019-04-09] MEDS ORDERED: NS 1,000 ML IV SCH (12:15)
[2019-04-09] MEDS ORDERED: OXY IR PO PRN (12:30)
[2019-04-09] MEDS ORDERED: ZOFRAN PO PRN (12:30)
[2019-04-09] MEDS ORDERED: MILK OF MAGNESIA PO PRN (12:30)
[2019-04-09] MEDS ORDERED: MORPHINE IV PRN ×3 (12:30)
--- NOTE | 2019-04-09 12:40 | OPERATIVE NOTE ---
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 PROCEDURE: Revision arthroplasty left shoulder with conversion to reverse total shoulder arthroplasty with Delta Xtend size 8 cemented stem, a 38 mm eccentric +6 lateralized Glenosphere and a +15 mm Metaglene. SURGEON: Nando Yung MD PANTOGRAPH I ENGRAVER: LYRIC Ho; who was necessary for proper positioning, manipulation of the retraction and manipulation of the extremity during the case and approved efficiency. SECOND SUPERVISOR COLOR MAKING: Hayes Rivas RN ANESTHESIA: General. IV FLUIDS: 2000 mL lactated Ringer's. ESTIMATED BLOOD LOSS: 300 mL. COMPLICATIONS: None. INDICATION: The patient is a pleasant 78-year-old female who is approximately 5 years status post left total arthroplasty. She has been doing well until earlier this month. She states she slipped and had to catch herself on a bar and shoulder slipped out. She presented to the emergency room and underwent reduction. The patient had recurrent dislocation while on vacation in [place] and has remained dislocated anteriorly. Given the patient's instability recommendation to proceed with conversion to a reverse shoulder arthroplasty. Risks of surgery were explained, including the risks of anesthesia, , bleeding, infection, failure to relieve pain, postoperative stiffness, nerve injury, blood clots, fracture and other imponderables. All questions were answered, and the patient wished to proceed with surgery. DETAILS OF OPERATION: The patient was taken to the operating room, placed supine on the operating table. Once adequate anesthesia was obtained, patient placed in semi- Velasquez beach chair position. The left shoulder was subsequently prepped and draped in the usual sterile fashion. A deltopectoral incision was made through the previous surgical incision. The incision was carried down through subcutaneous tissue. Elevation of the deltopectoral interval was then developed. The patient's shoulder was dislocated anteriorly. The patient had evidence of thinning and very poor quality tissue. The subscapularis tendon appeared, this was released. There is also evidence of a tear of the superior aspect of the rotator cuff. After this had been performed, the extra of the humeral head was then removed. A rongeur was then used proximally. A small osteotome was then used to remove the proximal cement. It was then carried more distally. After adequate removal had been performed proximally, the stem was then removed. The patient did have some looseness to the tuberosity fragments and anterior one was loose and the lesser tuberosity was resected. Attention then turned to the intramedullary canal where the cement mantle was removed using an Unyqe ultrasonic cement removal system. After this had been performed, appeared to be good size for the placement of the cement stem. After this had been performed, attention then turned to the glenoid. The anchor peg in the glenoid was removed without difficulty. The central peg was then removed with a small screw. After this was performed, deep dissection was performed circumferential dissection was performed of the soft tissue. After this had been performed, a guide pin was then placed in the central portion of the glenoid. This followed by dilating with a reamer. After this had been performed, a +15 mL CAVANAUGH coated Metaglene was then impacted. It had good fit. Two locking screws were placed, 2 nonlocking screws. After this had been performed, a 38 mm +6 lateralized eccentric Glenosphere was then placed with eccentricity placed inferiorly. After this had been performed, attention then turned to the proximal humerus. A trial stem was then placed and a cup to determine appropriate height. After this had been performed, the vancomycin was mixed with cement on the back table. Copious irrigation was performed of the intramedullary canal. After the cement had been prepared, it was then placed into the intramedullary canal. The stem was then placed approximately 12 to 15 degrees of retroversion at the appropriate height. After cement had cured, trial cup was then performed and + 6 appeared to correct size. The trial cup was removed. The wound was copiously irrigated with pulsatile lavage. After this had been performed the 38 +6 humeral cup was then impacted, the shoulder was reduced, carried through range of motion, had excellent stability and range of motion. Exparel was placed in deep soft tissue, as well as the subcutaneous tissue. The wound was copiously once again. Then 2-0 Vicryl was used to reapproximate the deltopectoral interval, followed 2-0 Vicryl subcutaneous tissue and running 2-0 Prolene. Benzoin and Steri-Strips were applied. Adaptic, sterile 4 x 4s, ABD pad, and tape was applied to the left shoulder, followed shoulder immobilizer. All counts were correct. Patient tolerated procedure well, was transferred to the recovery room in stable condition. cc: Nando Yung MD MTDD
[2019-04-09] MEDS ORDERED: KEFZOL 2 GM/D5W 2 GM/50 ML IVPB IV SCH (13:00)
[2019-04-09] MEDS: KEFZOL 2 GM/D5W 2 GM/50 ML IVPB IV SCH (15:13)
[2019-04-09] MEDS: OXY IR PO PRN ×2 (15:13→22:22)
[2019-04-09] MEDS: TYLENOL PO SCH ×2 (15:13→22:22)
[2019-04-09] MEDS ORDERED: SEROQUEL PO SCH (21:00)
[2019-04-09] MEDS ORDERED: CELEXA PO SCH (21:00)
[2019-04-09] MEDS ORDERED: TIMOPTIC 0.25% OPH SOLUTION BOTH EYES SCH (21:00)
[2019-04-09] MEDS: PERIDEX MT SCH (22:20)
[2019-04-09] MEDS: TENORMIN PO SCH (22:20)
[2019-04-09] MEDS: KLOR-CON PO SCH (22:22)
[2019-04-09] MEDS: PEPCID PO SCH (22:23)
[2019-04-09] MEDS: COLACE PO SCH (22:30)
[2019-04-10] MEDS: KEFZOL 2 GM/D5W 2 GM/50 ML IVPB IV SCH (00:07)
[2019-04-10] MEDS: TYLENOL PO SCH (06:51)
[2019-04-10] MEDS ORDERED: SYNTHROID PO SCH (07:00)
[2019-04-10 07:21] LABS: HEMATOCRIT 26.1 % (37.0-47.0); HEMOGLOBIN 7.9 g/dL (12.0-16.0)
[2019-04-10 07:24] LABS: CALCIUM 7.8 mg/dL (8.8-10.2); CREATININE 1.3 mg/dL (0.5-0.9); POTASSIUM 4.4 mmol/L (3.5-5.1)
[2019-04-10] MEDS ORDERED: HYDROCHLOROTHIAZIDE PO SCH (09:00)
[2019-04-10] MEDS ORDERED: ARICEPT PO SCH (09:00)
[2019-04-10] MEDS ORDERED: AVAPRO PO SCH (09:00)
[2019-04-10] MEDS ORDERED: CARDIZEM CD PO SCH (09:00)
[2019-04-10] MEDS ORDERED: ELIQUIS PO SCH (09:00)
[2019-04-10 12:18] VITALS: BP 104/59
[2019-04-10] MEDS: OXY IR PO PRN (12:34)
[2019-04-10] MEDS: TENORMIN PO SCH (12:38)
[2019-04-10] MEDS: PERIDEX MT SCH (12:38)
[2019-04-10] MEDS: PEPCID PO SCH (12:39)
[2019-04-10] MEDS: KLOR-CON PO SCH (12:39)
[2019-04-10] MEDS: COLACE PO SCH (12:40)
--- NOTE | 2019-04-11 10:10 | ORTHOPAEDICS PROGRESS NOTE ---
DATE: 04/10/2019 SUBJECTIVE: Ms. Ulrich is 78-year-old female who underwent a left total shoulder revision converting to a reverse total shoulder arthroscopy. She rested comfortably throughout the night without any complaints. She states that her shoulder is doing very well today. She states that she has not been in any pain. She denies any shortness of breath or chest pain through the night and she has not had any calf pain or swelling. OBJECTIVE: VITAL SIGNS: She has been afebrile through the night with stable vital signs. Her incision is covered at this time and the dressing is clean and dry. I discussed with the nurses and they state that she had no active bleeding when they changed her dressings this morning. She is wearing her sling at this time and has not attempted any range of motion. She is neurovascularly intact distally. She has great sensation in her fingers and is able to squeeze my hand without any difficulty. She has no tenderness to her calves and her skin is warm and dry. Her H and H is 9 and 29 which is not decreased from her H and H on 04/04/2019 as it was 9 and 30 at that time. Her creatinine is 1.4 which has held stable from her previous creatinine. ASSESSMENT: The patient is stable at this time. She is postop day 1 of a left shoulder revision converting to a reverse total shoulder arthroplasty. We plan to have her start her rehab upon discharge. PLAN: We will have her start her rehab outpatient. She should be discharged today after she is seen by Dr. Yung. We will resume all of her home medications. She does not have any drains that have to be discontinued at this time. Dictated by LYRIC Ho for Nando Yung MD cc: Nando Yung MD
== END 2019-04-10 13:37 | disposition home or self-care (01) | DRG 483 ==
LOC: SURHOLD 03:56 → 4N 07:47
PROVIDERS: ADMIT Orthopaedic Surgery Adult Reconstructive Orthopaedic Surgery; ATTEND Orthopaedic Surgery Adult Reconstructive Orthopaedic Surgery

== ENCOUNTER 2019-07-30 13:51 | Observation (INO) ==
[2019-07-30] MEDS ORDERED: ZOFRAN ODT PO PRN (15:45)
[2019-07-30] MEDS ORDERED: NORCO-5 PO PRN (15:45)
[2019-07-30] MEDS ORDERED: TESSALON PO PRN (15:45)
[2019-07-30] MEDS ORDERED: PERCOCET-5 PO PRN (15:45)
[2019-07-30] MEDS ORDERED: TYLENOL PO PRN (15:45)
[2019-07-30] MEDS ORDERED: ULTRAM PO PRN (15:45)
[2019-07-30] MEDS ORDERED: NS 500 ML IV SCH (16:00)
[2019-07-30] MEDS ORDERED: ARICEPT PO SCH (21:00)
[2019-07-30] MEDS ORDERED: OCUVITE LUTEIN & ZEAXANTHIN PO SCH (21:00)
[2019-07-30] MEDS ORDERED: CELEXA PO SCH (21:00)
[2019-07-30] MEDS ORDERED: SEROQUEL PO SCH (21:00)
[2019-07-30] MEDS ORDERED: TIMOPTIC 0.25% OPH SOLUTION BOTH EYES SCH (21:00)
[2019-07-30] MEDS ORDERED: KLOR-CON PO SCH (21:00)
[2019-07-30 23:46] VITALS: BP 158/79
[2019-07-31] MEDS ORDERED: SYNTHROID PO SCH (07:00)
[2019-07-31] MEDS ORDERED: AVAPRO PO SCH (09:00)
[2019-07-31] MEDS ORDERED: VITAMIN D PO SCH (09:00)
[2019-07-31] MEDS ORDERED: TENORMIN PO SCH (09:00)
[2019-07-31] MEDS ORDERED: THERA M PLUS PO SCH (09:00)
[2019-07-31] MEDS ORDERED: ZINC SULFATE PO SCH (09:00)
[2019-07-31] MEDS ORDERED: ASPIRIN EC PO SCH (09:00)
[2019-07-31] MEDS ORDERED: ALLEGRA PO SCH (09:00)
[2019-07-31] MEDS ORDERED: CELEBREX PO SCH (09:00)
[2019-07-31] MEDS ORDERED: HYDROCHLOROTHIAZIDE PO SCH (09:00)
[2019-07-31] MEDS ORDERED: CARDIZEM CD PO SCH (09:00)
[2019-07-31] MEDS ORDERED: ELIQUIS PO SCH (09:00)
== END 2019-07-30 23:57 ==
LOC: DIRADM → 4N 13:51
PROVIDERS: ADMIT Internal Medicine Hematology & Oncology; ATTEND Internal Medicine Hematology & Oncology